=== PATIENT | male | born 1950 | race Caucasian/White ===

== ENCOUNTER 2019-01-31 17:25 | Inpatient (IN) ==
[2019-01-31] MEDS ORDERED: 0.9 % Sodium Chloride 1,000 ML IVC STA (18:02)
[2019-01-31] MEDS ORDERED: *HR* FentaNYL (PF) 100 MCG/2 ML VIAL IVP ONE ×2 (18:03→20:56)
[2019-01-31 18:49] LABS: Red Cell Distribution Width 13.9 % (11.5-14.5)
[2019-01-31 18:50] LABS: Hematocrit 40.2 % (37.5-50.1); Hemoglobin 13.2 g/dL (12.9-16.9); Mean Corpuscular HGB Conc 32.8 g/dL (31.6-35.5); Mean Corpuscular Hemoglobin 31.6 pg (28.0-33.3); Mean Corpuscular Volume 96.2 fL (83.0-100.0); Mean Platelet Volume 9.1 fL (9.4-12.4); Platelet Count 247 K/mcL (140-400); Red Blood Count 4.18 M/mcL (4.19-5.50); White Blood Count 28.8 K/mcL (4.3-11.1)
[2019-01-31 18:53] LABS: Lymphocytes # 1.2 K/mcL (0.6-4.6)
[2019-01-31 19:17] LABS: Alanine Aminotransferase 99 Units/L (7-52); Albumin 3.6 g/dL (3.5-5.7); Albumin/Globulin Ratio 1.4 (1.1-2.2); Alkaline Phosphatase 93 Units/L (34-104); Aspartate Amino Transferase 72 Units/L (13-39); BUN/Creatinine Ratio 10 (6-26); Blood Urea Nitrogen 20 mg/dL (8-23); Calcium 8.9 mg/dL (8.6-10.3); Carbon Dioxide 25 mEq/L (23-29); Chloride 99 mEq/L (98-107); Globulin 2.6 g/dL (2.4-3.5); Glucose 100 mg/dL (70-105); Lipase < 3 Units/L (11-82); Magnesium 1.9 mg/dL (1.6-2.6); Osmolality,Calculated 283 (280-300); Potassium 5.3 mEq/L (3.5-5.1); Sodium 135 mEq/L (136-145); Total Protein 6.2 g/dL (6.4-8.9); eGFR For African Americans 40 (> 60); eGFR For Non-African Americans 33 (> 60)
[2019-01-31 19:19] LABS: Eosinophils # 0.3 K/mcL (0.0-0.6); Monocytes # 0.6 K/mcL (0.0-1.3); Neutrophils # 26.8 K/mcL (1.6-8.9); Platelet Estimate Normal (Normal)
[2019-01-31] MEDS ORDERED: Piperacillin/Tazobactam 3.375 GM in 0.9 % Sodium Chloride Mini Bag 100 ML IVPB ONE (19:30)
[2019-01-31] MEDS ORDERED: Acetaminophen 325 MG TABLET PO PRN (22:26)
[2019-01-31] MEDS ORDERED: Ondansetron 4 MG/2 ML VIAL IVP PRN (22:26)
[2019-01-31] MEDS: 0.9 % Sodium Chloride 1,000 ML IVC SCH (22:38)
[2019-02-01] MEDS: Ipratropium/Albuterol Neb 3 ML IH PRN ×2 (00:07→07:57)
[2019-02-01] MEDS: Piperacillin/Tazobactam 3.375 GM in 0.9 % Sodium Chloride Mini Bag 100 ML IVPB SCH ×3 (04:02→19:44)
[2019-02-01 05:08] LABS: Hematocrit 36.3 % (37.5-50.1); Hemoglobin 12.2 g/dL (12.9-16.9); Mean Corpuscular HGB Conc 33.6 g/dL (31.6-35.5); Mean Corpuscular Hemoglobin 32.4 pg (28.0-33.3); Mean Corpuscular Volume 96.3 fL (83.0-100.0); Mean Platelet Volume 9.4 fL (9.4-12.4); Platelet Count 239 K/mcL (140-400); Red Blood Count 3.77 M/mcL (4.19-5.50); White Blood Count 24.9 K/mcL (4.3-11.1)
[2019-02-01 05:09] LABS: VBG HCO3 24 mEq/L (21-27); VBG PCO2 43 mmHg (41-51); VBG PH 7.35 pH Units (7.32-7.42); VBG PO2 107 mmHg (25-50)
[2019-02-01 05:15] LABS: Activated Partial Thrombo Time 29.8 Seconds (26.0-36.0)
[2019-02-01 05:20] LABS: INR 1.4; Prothrombin Time 16.1 Seconds (9.4-12.1)
[2019-02-01 05:30] LABS: Albumin 3.5 g/dL (3.5-5.7); Albumin/Globulin Ratio 1.4 (1.1-2.2); Bilirubin,Direct 0.9 mg/dL (0.0-0.2); Bilirubin,Indirect 1.6 mg/dL (0.0-1.0); Bilirubin,Total 2.5 mg/dL (0.3-1.0); Calcium 8.2 mg/dL (8.6-10.3); Globulin 2.5 g/dL (2.4-3.5); Magnesium 1.9 mg/dL (1.6-2.6); Phosphorous 3.1 mg/dL (2.7-4.5); Potassium 4.6 mEq/L (3.5-5.1)
[2019-02-01] MEDS: 0.9 % Sodium Chloride 1,000 ML IVC SCH (07:03)
[2019-02-01] MEDS ORDERED: Ondansetron 4 MG/2 ML VIAL ONE (07:43)
[2019-02-01] MEDS ORDERED: *HR* Succinylcholine 200 MG/10 ML VIAL IVP ONE (07:43)
[2019-02-01] MEDS ORDERED: Lidocaine -MPF 2% 2 ML VIAL ONE (07:43)
[2019-02-01] MEDS ORDERED: *HR* Propofol 200 MG/20 ML VIAL IVP ONE (07:43)
[2019-02-01] MEDS ORDERED: Lidocaine -MPF 4% 5 ML AMPUL ONE (08:12)
[2019-02-01] MEDS ORDERED: *HR* PHENYLEPHRINE 1,000 MCG/10 ML SYRINGE IVP ONE (08:17)
[2019-02-01] MEDS ORDERED: *HR* FentaNYL (PF) 100 MCG/2 ML VIAL ONE (08:38)
[2019-02-01] MEDS ORDERED: Dexamethasone 4 MG/ML VIAL ONE (08:42)
[2019-02-01] MEDS ORDERED: *HR* OxyCODONE Immed Rel 5 MG TABLET PO PRN (08:46)
[2019-02-01] MEDS ORDERED: Indomethacin 50 MG SUPP.RECT RC ONE (09:09)
[2019-02-01] MEDS: Ringers Solution, Lactated 1,000 ML IVC SCH (18:05)
[2019-02-02] MEDS: Piperacillin/Tazobactam 3.375 GM in 0.9 % Sodium Chloride Mini Bag 100 ML IVPB SCH ×3 (04:06→20:11)
[2019-02-02 04:31] LABS: Basophils % 0.1 %; Hematocrit 34.9 % (37.5-50.1); Hemoglobin 11.3 g/dL (12.9-16.9); Immature Granulocytes % 1.2 % (0-4); Lymphocytes # 0.6 K/mcL (0.6-4.6); Lymphocytes % 2.8 %; Mean Corpuscular HGB Conc 32.4 g/dL (31.6-35.5); Mean Corpuscular Hemoglobin 31.2 pg (28.0-33.3); Mean Corpuscular Volume 96.4 fL (83.0-100.0); Mean Platelet Volume 9.7 fL (9.4-12.4); Monocytes # 0.4 K/mcL (0.0-1.3); Neutrophils # 20.5 K/mcL (1.6-8.9); Platelet Count 219 K/mcL (140-400); Red Blood Count 3.62 M/mcL (4.19-5.50); Red Cell Distribution Width 13.6 % (11.5-14.5); Segmented Neutrophils % 93.9 %; White Blood Count 21.8 K/mcL (4.3-11.1)
[2019-02-02 04:52] LABS: Alanine Aminotransferase 64 Units/L (7-52); Albumin 3.4 g/dL (3.5-5.7); Albumin/Globulin Ratio 1.3 (1.1-2.2); Alkaline Phosphatase 79 Units/L (34-104); Aspartate Amino Transferase 59 Units/L (13-39); BUN/Creatinine Ratio 18 (6-26); Bilirubin,Total 0.6 mg/dL (0.3-1.0); Blood Urea Nitrogen 24 mg/dL (8-23); Carbon Dioxide 23 mEq/L (23-29); Chloride 103 mEq/L (98-107); Globulin 2.7 g/dL (2.4-3.5); Glucose 146 mg/dL (70-105); Osmolality,Calculated 287 (280-300); Potassium 4.6 mEq/L (3.5-5.1); Sodium 135 mEq/L (136-145); Total Protein 6.1 g/dL (6.4-8.9); eGFR For African Americans > 60 (> 60); eGFR For Non-African Americans 52 (> 60)
[2019-02-02] MEDS ORDERED: Ipratropium/Albuterol Neb 3 ML IH PRN (08:37)
[2019-02-02] MEDS ORDERED: Ipratropium/Albuterol Neb 3 ML IH ONE ×2 (09:00→12:00)
[2019-02-02] MEDS ORDERED: Ipratropium/Albuterol Neb 3 ML IH STA (09:57)
[2019-02-02] MEDS ORDERED: methylPREDNISolone 125 MG/2 ML VIAL IVP ONE (09:58)
[2019-02-02] MEDS ORDERED: Tiotropium 18 MCG inhalation IH SCH (10:00)
[2019-02-02] MEDS: Ipratropium/Albuterol Neb 3 ML IH SCH ×3 (11:28→20:08)
[2019-02-02] MEDS: Budesonide/Formoterol 160/4.5 1 PUFF INH IH SCH ×2 (11:29→20:08)
[2019-02-02] MEDS: MethylPREDNISolone 40 MG/ML VIAL IVP SCH ×2 (16:47→23:32)
[2019-02-03] MEDS: Ipratropium/Albuterol Neb 3 ML IH SCH ×6 (00:04→20:21)
[2019-02-03] MEDS: Ringers Solution, Lactated 1,000 ML IVC SCH (01:09)
[2019-02-03] MEDS: Piperacillin/Tazobactam 3.375 GM in 0.9 % Sodium Chloride Mini Bag 100 ML IVPB SCH ×3 (04:08→19:53)
[2019-02-03 06:33] LABS: Basophils % 0.1 %; Hemoglobin 10.8 g/dL (12.9-16.9); Immature Granulocytes % 1.6 % (0-4); Lymphocytes # 0.4 K/mcL (0.6-4.6); Lymphocytes % 2.1 %; Mean Corpuscular HGB Conc 32.7 g/dL (31.6-35.5); Mean Corpuscular Hemoglobin 31.6 pg (28.0-33.3); Mean Corpuscular Volume 96.5 fL (83.0-100.0); Mean Platelet Volume 9.9 fL (9.4-12.4); Monocytes # 0.4 K/mcL (0.0-1.3); Monocytes % 2.2 %; Neutrophils # 17.6 K/mcL (1.6-8.9); Platelet Count 236 K/mcL (140-400); Red Blood Count 3.42 M/mcL (4.19-5.50); Red Cell Distribution Width 13.5 % (11.5-14.5); White Blood Count 18.7 K/mcL (4.3-11.1)
[2019-02-03 07:02] LABS: Alanine Aminotransferase 50 Units/L (7-52); Albumin 3.2 g/dL (3.5-5.7); Albumin/Globulin Ratio 1.2 (1.1-2.2); Alkaline Phosphatase 74 Units/L (34-104); Aspartate Amino Transferase 25 Units/L (13-39); BUN/Creatinine Ratio 16 (6-26); Bilirubin,Total 0.3 mg/dL (0.3-1.0); Blood Urea Nitrogen 18 mg/dL (8-23); Carbon Dioxide 26 mEq/L (23-29); Chloride 102 mEq/L (98-107); Globulin 2.7 g/dL (2.4-3.5); Glucose 211 mg/dL (70-105); Osmolality,Calculated 296 (280-300); Potassium 4.3 mEq/L (3.5-5.1); Sodium 139 mEq/L (136-145); Total Protein 5.9 g/dL (6.4-8.9); eGFR For African Americans > 60 (> 60); eGFR For Non-African Americans > 60 (> 60)
[2019-02-03] MEDS: Budesonide/Formoterol 160/4.5 1 PUFF INH IH SCH ×2 (07:49→20:21)
[2019-02-03] MEDS: MethylPREDNISolone 40 MG/ML VIAL IVP SCH ×3 (10:28→23:58)
[2019-02-03] MEDS ORDERED: Isovue-300 50ML VIAL ONE (14:01)
[2019-02-03] MEDS ORDERED: *HR* Propofol 200 MG/20 ML VIAL IVP ONE (14:08)
[2019-02-03] MEDS ORDERED: Lidocaine -MPF 2% 2 ML VIAL ONE ×2 (14:08→14:39)
[2019-02-03] MEDS ORDERED: *HR* FentaNYL (PF) 100 MCG/2 ML VIAL ONE ×2 (14:08→16:09)
[2019-02-03] MEDS ORDERED: Dexamethasone 4 MG/ML VIAL ONE (14:08)
[2019-02-03] MEDS ORDERED: *HR* Midazolam HCl 2 MG/2 ML VIAL ONE (14:08)
[2019-02-03] MEDS ORDERED: Lidocaine HCL 4 ML Topical Solution (Laryng-O-Jet Kit Sterile Pak) TP ONE (14:08)
[2019-02-03] MEDS ORDERED: Ondansetron 4 MG/2 ML VIAL ONE (14:08)
[2019-02-03] MEDS ORDERED: *HR* Rocuronium Bromide 50 MG/5 ML VIAL ONE (14:08)
[2019-02-03] MEDS ORDERED: *HR* HYDROmorphone (PF) 1 MG/ML SYRINGE IVP PRN ×2 (14:55→18:09)
[2019-02-03] MEDS ORDERED: *HR* Labetalol 20 MG/4 ML SYRINGE IVP ONE (15:46)
[2019-02-03] MEDS ORDERED: Ipratropium/Albuterol Neb 3 ML IH PRN (18:09)
[2019-02-03] MEDS ORDERED: Ondansetron 4 MG/2 ML VIAL IVP PRN (18:09)
[2019-02-03] MEDS ORDERED: Acetaminophen 325 MG TABLET PO PRN (18:09)
[2019-02-04] MEDS: Ipratropium/Albuterol Neb 3 ML IH SCH ×4 (00:29→11:48)
[2019-02-04] MEDS: *HR* Heparin 5,000 UNIT/ML VIAL SQ SCH ×2 (04:04→15:03)
[2019-02-04] MEDS: Piperacillin/Tazobactam 3.375 GM in 0.9 % Sodium Chloride Mini Bag 100 ML IVPB SCH ×2 (04:04→12:14)
[2019-02-04 07:02] VITALS: BP 155/71
[2019-02-04 07:07] LABS: Basophils % 0.1 %; Hematocrit 35.7 % (37.5-50.1); Hemoglobin 11.6 g/dL (12.9-16.9); Immature Granulocytes % 0.7 % (0-4); Lymphocytes # 0.5 K/mcL (0.6-4.6); Lymphocytes % 3.9 %; Mean Corpuscular HGB Conc 32.5 g/dL (31.6-35.5); Mean Corpuscular Hemoglobin 31.4 pg (28.0-33.3); Mean Corpuscular Volume 96.5 fL (83.0-100.0); Mean Platelet Volume 9.6 fL (9.4-12.4); Monocytes # 0.4 K/mcL (0.0-1.3); Monocytes % 3.3 %; Platelet Count 261 K/mcL (140-400); Red Cell Distribution Width 13.8 % (11.5-14.5)
[2019-02-04 07:29] LABS: Alanine Aminotransferase 72 Units/L (7-52); Albumin 3.2 g/dL (3.5-5.7); Albumin/Globulin Ratio 1.2 (1.1-2.2); Alkaline Phosphatase 63 Units/L (34-104); Aspartate Amino Transferase 52 Units/L (13-39); BUN/Creatinine Ratio 20 (6-26); Bilirubin,Direct 0.1 mg/dL (0.0-0.2); Bilirubin,Total 0.4 mg/dL (0.3-1.0); Blood Urea Nitrogen 20 mg/dL (8-23); Calcium 8.7 mg/dL (8.6-10.3); Carbon Dioxide 27 mEq/L (23-29); Chloride 102 mEq/L (98-107); Globulin 2.6 g/dL (2.4-3.5); Glucose 146 mg/dL (70-105); Osmolality,Calculated 293 (280-300); Potassium 4.7 mEq/L (3.5-5.1); Sodium 139 mEq/L (136-145); Total Protein 5.8 g/dL (6.4-8.9); eGFR For African Americans > 60 (> 60); eGFR For Non-African Americans > 60 (> 60)
[2019-02-04] MEDS: MethylPREDNISolone 40 MG/ML VIAL IVP SCH (07:58)
[2019-02-04] MEDS: Budesonide/Formoterol 160/4.5 1 PUFF INH IH SCH (11:48)
== END 2019-02-04 15:51 | disposition home or self-care (01) | DRG 854 ==
LOC: EMEROOARM 17:25 → 3ANU 17:25 → SUATTDRO 21:48 → 3ANU 22:14 → SUATTDRO 22:27
PROVIDERS: ADMIT Internal Medicine; ATTEND Student in an Organized Health Care Education/Training Program